=== PATIENT | female | born 1975 | race Caucasian/White ===

== ENCOUNTER → 2023-06-11 14:13 | Outpatient (REF) | payer OTHER, SELFPAY | LOC: WDC 14:13 | PROVIDERS: ATTENDING PHYSICIAN Nurse Practitioner | DX: Z12.31 Encounter for screening mammogram for malignant neoplasm of breast (principal) | CPT/HCPCS: 77063; 77067 ==

== ENCOUNTER → 2024-06-14 13:31 | Outpatient (REF) | payer OTHER, SELFPAY | LOC: WDC 13:31 | PROVIDERS: ATTENDING PHYSICIAN Nurse Practitioner | DX: Z12.31 Encounter for screening mammogram for malignant neoplasm of breast (principal) | CPT/HCPCS: 77063; 77067 ==